=== PATIENT | female | born 1950 | race Caucasian/White ===

== ENCOUNTER → 2020-06-02 09:42 | Outpatient (BNVA) | payer MEDICARE, MEDICAID, SELFPAY | PROVIDERS: PCP Family Medicine; Referring Provider Family Medicine; Visit Provider Psychiatry & Neurology Neurology | DX: R26.89 Other abnormalities of gait and mobility (principal); G40.109 Localization-related (focal) (partial) symptomatic epilepsy and epileptic syndromes with simple partial seizures, not intractable, without status epilepticus; R41.3 Other amnesia | CPT/HCPCS: 99205 ==

== ENCOUNTER 2020-06-05 04:39 | Outpatient (CLI) | payer MEDICARE, MEDICAID, SELFPAY ==
--- NOTE | 2020-06-11 16:59 | PDOC.EEG_ITS ---
Neurology EEG EEG: [facility] Department of Neurology LONG-TERM AMBULATORY EEG REPORT Date of Recordin06/05/20 at 13:32:58 to 06/06/20 at 09:51:39 Interpreting Physician: Dr. Jeanne Tam PCP/Referring Provider: Dr. Tamayo Reason for study: Ms. Veloz is a 70 year-old woman with a recent diagnosis of left temporal epilepsy and recent feelings of unwellness concerning for subclinical seizure activity. Current Medications: Home Medications Medication Instructions Recorded Confirmed Type hydroxyzine HCl 25 mg tablet 25 mg PO TID PRN 05/05/20 06/02/20 History lamotrigine 25 mg tablet 100 mg PO DAILY tab 05/05/20 06/02/20 History multivitamin,gy-sdln-[id number] 1 tab PO DAILY 05/05/20 06/02/20 History potassium chloride 20 mEq 20 meq PO DAILY 05/05/20 06/02/20 History tablet,extended release(part/cryst) folic acid 1 mg tablet 1 mg PO DAILY 06/02/20 06/02/20 History lacosamide 150 mg tablet 150 mg PO DIRECTED tab 06/02/20 06/02/20 History thiamine HCl (vitamin B1) 100 mg 100 mg PO DAILY 06/02/20 06/02/20 History tablet zolpidem 5 mg tablet 5 mg PO QHS PRN 06/02/20 06/02/20 History METHODS: An 18-channel digitized electroencephalogram was recorded in the ambulatory setting with video. The 10/20 international system of electrode placement was used and bipolar and referential electrode montages were recorded. In addition to EEG the patient was monitored for EKG and by video. Activation procedures of photic stimulation and hyperventilation were performed if applicable. The duration of the recording was ~20 hours. DESCRIPTION OF EEG: Waking background activity: During maximal wakefulness a 10-Hz posterior background rhythm was present which was well-modulated, symmetrical, reactive to eye opening, and of moderate voltage. Faster frequencies were present in the bilateral anterior head regions. There was a normal anterior-posterior voltage gradient. Drowsy and sleeping background activity: During drowsiness, there was attenuation of the posterior dominant background rhythm and vertex waves. Normal stage II and III sleep was present with symmetrical sleep spindles, K- complexes, and vertex waves with slowing of the background rhythm to delta/theta frequencies. REM sleep manifested by rapid lateral eye movements and faster background rhythms was recorded. Arousal was unremarkable. Of note, she had overall very little sleep during the recorded time period. What sleep was recorded, occurred in short 1 hour naps for the most part with a single sleep episode of ~3 hours late in the evening. During sleep, she had frequent nocturnal arousals. Interictal abnormalities: none. Ictal findings: No events captured. Activating Procedures: Photic stimulation was performed which produced no posterior driving response. Hyperventilation was performed with moderate effort and produced no physiological slowing of the background. EKG: EKG revealed normal sinus rhythm. INTERPRETATION: This long-term EEG is normal during the awake and sleep states as well as during the activation procedures. No events were captured. She demonstrated a scattered sleep pattern with frequent nocturnal arousals. PRIOR EEG: -vEEG (10/2019 at [facility]): multiple seizures captured with left temporal onset. CLINICAL CORRELATION: No focal regions of cerebral dysfunction or epileptiform activity was present. No events/seizures were captured. The sleep disturbance seen is concerning for an underlying sleep disorder such as sleep apnea. Clinical correlation is advised. Jeanne Tam MD
== END 2020-06-05 04:59 ==
PROVIDERS: PCP Family Medicine; Visit Provider Psychiatry & Neurology Neurology
DX: G40.909 Epilepsy, unspecified, not intractable, without status epilepticus (principal)
CPT/HCPCS: 95714; 95720

== ENCOUNTER → 2020-06-18 13:34 | Outpatient (BNVA) | payer MEDICARE, MEDICAID, SELFPAY | PROVIDERS: PCP Family Medicine; Referring Provider Family Medicine; Visit Provider Psychiatry & Neurology Neurology | DX: R41.3 Other amnesia (principal); G47.00 Insomnia, unspecified; R26.9 Unspecified abnormalities of gait and mobility; G40.109 Localization-related (focal) (partial) symptomatic epilepsy and epileptic syndromes with simple partial seizures, not intractable, without status epilepticus | CPT/HCPCS: 99214 ==

== ENCOUNTER → 2020-07-23 09:13 | Outpatient (BNVA) | payer MEDICARE, MEDICAID, SELFPAY | PROVIDERS: PCP Family Medicine; Referring Provider Family Medicine; Visit Provider Psychiatry & Neurology Neurology | DX: R26.89 Other abnormalities of gait and mobility (principal); G40.109 Localization-related (focal) (partial) symptomatic epilepsy and epileptic syndromes with simple partial seizures, not intractable, without status epilepticus; R41.3 Other amnesia; G47.00 Insomnia, unspecified | CPT/HCPCS: 99214 ==

== ENCOUNTER → 2020-09-23 08:24 | Outpatient (BNVA) | payer MEDICARE, MEDICAID, SELFPAY | PROVIDERS: PCP Family Medicine; Referring Provider Family Medicine; Visit Provider Psychiatry & Neurology Neurology | DX: G62.9 Polyneuropathy, unspecified (principal); G40.109 Localization-related (focal) (partial) symptomatic epilepsy and epileptic syndromes with simple partial seizures, not intractable, without status epilepticus; R41.3 Other amnesia; R26.9 Unspecified abnormalities of gait and mobility; G47.00 Insomnia, unspecified; R20.2 Paresthesia of skin | CPT/HCPCS: 99213 ==

== ENCOUNTER → 2020-11-26 07:35 | Outpatient (BNVA) | payer MEDICARE, MEDICAID, SELFPAY | PROVIDERS: PCP Family Medicine; Referring Provider Family Medicine; Visit Provider Psychiatry & Neurology Neurology | DX: G40.109 Localization-related (focal) (partial) symptomatic epilepsy and epileptic syndromes with simple partial seizures, not intractable, without status epilepticus (principal); R41.3 Other amnesia; G47.00 Insomnia, unspecified; R20.2 Paresthesia of skin | CPT/HCPCS: 99443 ==

== ENCOUNTER → 2021-01-21 08:39 | Outpatient (BNVA) | payer MEDICARE, MEDICAID, SELFPAY | PROVIDERS: PCP Family Medicine; Referring Provider Family Medicine; Visit Provider Psychiatry & Neurology Neurology | DX: G40.109 Localization-related (focal) (partial) symptomatic epilepsy and epileptic syndromes with simple partial seizures, not intractable, without status epilepticus (principal); R41.3 Other amnesia; G47.00 Insomnia, unspecified; R20.2 Paresthesia of skin; R26.9 Unspecified abnormalities of gait and mobility | CPT/HCPCS: 99213 ==

== ENCOUNTER → 2021-04-15 08:50 | Outpatient (BNVA) | payer MEDICARE, MEDICAID, SELFPAY | PROVIDERS: PCP Family Medicine; Referring Provider Family Medicine; Visit Provider Psychiatry & Neurology Neurology | DX: G40.109 Localization-related (focal) (partial) symptomatic epilepsy and epileptic syndromes with simple partial seizures, not intractable, without status epilepticus (principal); R41.3 Other amnesia; G47.00 Insomnia, unspecified; R26.9 Unspecified abnormalities of gait and mobility; R20.2 Paresthesia of skin | CPT/HCPCS: 99213 ==

== ENCOUNTER → 2021-07-15 08:33 | Outpatient (BNVA) | payer MEDICARE, MEDICAID, SELFPAY | PROVIDERS: PCP Family Medicine; Referring Provider Family Medicine; Visit Provider Psychiatry & Neurology Neurology | DX: G40.109 Localization-related (focal) (partial) symptomatic epilepsy and epileptic syndromes with simple partial seizures, not intractable, without status epilepticus (principal); R41.3 Other amnesia; G47.00 Insomnia, unspecified; R26.9 Unspecified abnormalities of gait and mobility; R20.2 Paresthesia of skin | CPT/HCPCS: 99214 ==

== ENCOUNTER → 2021-12-08 09:27 | Outpatient (BNVA) | payer MEDICARE, MEDICAID, SELFPAY | PROVIDERS: PCP Family Medicine; Referring Provider Family Medicine; Visit Provider Psychiatry & Neurology Neurology | DX: G40.109 Localization-related (focal) (partial) symptomatic epilepsy and epileptic syndromes with simple partial seizures, not intractable, without status epilepticus (principal); R41.3 Other amnesia; G47.00 Insomnia, unspecified; R26.9 Unspecified abnormalities of gait and mobility; R20.2 Paresthesia of skin | CPT/HCPCS: 99213 ==

== ENCOUNTER → 2022-02-22 13:36 | Outpatient (BNVA) | payer MEDICARE, MEDICAID, SELFPAY | PROVIDERS: PCP Family Medicine; Referring Provider Family Medicine; Visit Provider Psychiatry & Neurology Neurology | DX: G40.109 Localization-related (focal) (partial) symptomatic epilepsy and epileptic syndromes with simple partial seizures, not intractable, without status epilepticus (principal); F10.230 Alcohol dependence with withdrawal, uncomplicated; R41.3 Other amnesia; G47.00 Insomnia, unspecified; R26.9 Unspecified abnormalities of gait and mobility; R20.2 Paresthesia of skin | CPT/HCPCS: 99214 ==

== ENCOUNTER → 2022-05-11 08:42 | Outpatient (BNVA) | payer MEDICARE, MEDICAID, SELFPAY | PROVIDERS: PCP Family Medicine; Referring Provider Family Medicine; Visit Provider Psychiatry & Neurology Neurology | DX: G40.109 Localization-related (focal) (partial) symptomatic epilepsy and epileptic syndromes with simple partial seizures, not intractable, without status epilepticus (principal); R41.3 Other amnesia; G47.00 Insomnia, unspecified; R26.9 Unspecified abnormalities of gait and mobility; R20.2 Paresthesia of skin | CPT/HCPCS: 99214 ==

== ENCOUNTER → 2022-11-09 08:00 | Outpatient (BNVA) | payer MEDICARE, MEDICAID, SELFPAY | PROVIDERS: PCP Family Medicine; Referring Provider Family Medicine; Visit Provider Psychiatry & Neurology Neurology | DX: G40.109 Localization-related (focal) (partial) symptomatic epilepsy and epileptic syndromes with simple partial seizures, not intractable, without status epilepticus (principal); R20.2 Paresthesia of skin; R41.3 Other amnesia; G47.00 Insomnia, unspecified; R26.9 Unspecified abnormalities of gait and mobility; G43.009 Migraine without aura, not intractable, without status migrainosus | CPT/HCPCS: 99214 ==

== ENCOUNTER → 2023-05-11 08:12 | Outpatient (BNVA) | payer MEDICARE, MEDICAID, SELFPAY | PROVIDERS: PCP Family Medicine; Referring Provider Family Medicine; Visit Provider Psychiatry & Neurology Neurology | DX: R41.3 Other amnesia (principal); F39 Unspecified mood [affective] disorder; G47.00 Insomnia, unspecified; R26.89 Other abnormalities of gait and mobility; G40.109 Localization-related (focal) (partial) symptomatic epilepsy and epileptic syndromes with simple partial seizures, not intractable, without status epilepticus; R20.2 Paresthesia of skin | CPT/HCPCS: 99214 ==

== ENCOUNTER 2023-06-03 12:21 | Day surgery (SDC) | payer MEDICARE, MEDICAID, SELFPAY ==
[2023-06-03 12:47] VITALS: BP 131/60; PULSE 61; RESP 16; TEMP 36.3; O2SAT 97
[2023-06-03] MEDS: Tropicam./Phenyleph. (1/2.5%) 5 ML BTL OS ×3 (12:55→13:09)
--- NOTE | 2023-06-03 13:13 | W.ANESPRE ---
General Info Date of Service Date Performed: 06/03/23 Height: 5 ft 6 in Weight: 75.1 kg Body Mass Index (BMI): 26.7 Surgical Procedure: Operation Date: 06/03/23 14:25 Proposed Procedure Side Surgeon p Cataract Extraction with IOL Implant Left Maxim Herr MD Meds Allergies and Home Medications Allergies Allergy/AdvReac Type Severity Reaction Status Date / Time codeine Allergy Verified 06/03/23 12:44 lithium AdvReac dizzy Verified 06/03/23 12:44 Home Medication Medication Instructions Recorded hydroxyzine HCl 25 mg tablet 25 mg PO TID PRN 05/05/20 multivitamin,sl-mzat-eljjwuow 1 tab PO DAILY 05/05/20 (Complete Multivitamin tablet) cyanocobalamin (vitamin B-12) 1,000 mcg PO DAILY 07/15/21 1,000 mcg capsule thiamine HCl (vitamin B1) 100 mg 100 mg PO DAILY #90 tabs 03/23/22 tablet ondansetron 4 mg disintegrating 4 mg PO Q8H PRN nausea and 05/11/22 tablet vomiting #30 tabs lamotrigine 200 mg tablet 200 mg PO BID #180 tabs 11/09/22 folic acid 1 mg tablet 1 mg PO DAILY 05/11/23 levetiracetam 1,000 mg tablet 1,000 mg PO BID #180 tabs 05/11/23 ciclopirox 0.77 % topical gel 1 applic topical BID 06/01/23 sumatriptan succinate 100 mg tablet 100 mg PO DIRECTED 06/01/23 Current Visit Medications: Current Medications Generic Name Dose Route Start Last Admin Trade Name Serafinq PRN Reason Stop Dose Admin Acetaminophen 1,000 mg 06/03/23 06:00 Acetaminophen 500 Mg Tab PO 07/03/23 05:59 Q4H PRN PRN Balanced Salt Solution 500 ml 06/03/23 06:00 Balanced Salt Soln.-Plus 500 Ml Bag OP 07/03/23 05:59 DIRECTED ADOLPH Miscellaneous Medication 0 ml 06/03/23 06:00 Prednisolone 1%, Moxifloxacin 0.5%, Nepafenac 0.1% 5ml Btl OS 07/03/23 05:59 DIRECTED ADOLPH Miscellaneous Medication 0 ml 06/03/23 06:00 06/03/23 13:09 Tropicam./Phenyleph. 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 Tinea corporis Urge incontinence Urinary incontinence Surgical History Surgical History H/O section History of tonsillectomy Hx of artificial knee joint, has currently S/P total knee arthroplasty Tobacco Smoking/Tobacco Use Status: Former Tobacco Use Alcohol Alcohol Intake: former Substance Use Substance use: Daily Substance use type: marijuana Details: last marijuana use 06/02/23, smokes Vital Signs and Lab Results Vital Signs Most Recent Vital Signs in EMR: Most Recent Vital Signs Temp Pulse Resp BP Pulse Ox 36.3 C L 61 16 131/60 97 06/03/23 12:47 06/03/23 12:47 06/03/23 12:47 06/03/23 12:47 06/03/23 12:47 Lab Results Blood Type / Crossmatch: No Data to Display Complete Blood Count: No Data to Display Complete Metabolic Panel: No Data to Display Liver Function Panel: No Data to Display Coagulation Panel: No Data to Display Cardiac Panel: No Data to Display Arterial Blood Gas: No Data to Display Venous Blood Gas: No Data to Display Pancreas Panel: No Data to Display Thyroid Panel: No Data to Display Infectious Disease: No Data to Display Blood Cultures: No Data to Display Toxicology Panel: No Data to Display Anesthesia Assessment and Plan Anesthesia History Personal History: No History of Anesthesia Complications Family History: No Family History of Anesthesia Complications Exercise Tolerance Exercise Tolerance: Metabolic Equivalents>4 Pertinent Negatives Pertinent Negatives: No Symptoms of GERD Cardiac & Pulmonary Exam Cardiac Exam: Normal S1/S2 Heart Sounds Pulmonary Exam: Clear Bilateral Breath Sounds Implantable Cardiac Device Does patient have a Pacemaker or an ICD?: No Airway Exam Known Difficult Airway: No Mallampati Class: 1 Mouth Opening: Normal (> 3cm) Thyromental Distance: Greater than 3 cm Neck Range of Motion: Full ROM Neck Circumference: Normal Teeth Condition: Normal Dentition ASA Classification ASA Score: ASA 2 Emergency Case?: No NPO Status NPO Status: NPO Clears >2 hours, Solids >8 hours Anesthesia Plan Resuscitation Status: Full Code Anesthesia Technique: MAC Anesthesia Airway Planned: Natural Airway Monitors Used: Standard Monitors
[2023-06-03 13:14] VITALS: BMI 26.7
[2023-06-03] MEDS: Balanced Salt Soln.-PLUS 500 ML BAG OP (14:10)
[2023-06-03] MEDS: Duovisc Viscoelastic System EACH 1 EACH (14:11)
[2023-06-03] MEDS: Phenylephrine/Lidocaine (15/10) MG/ML 1 ML VIAL (14:12)
[2023-06-03] MEDS: Lidocaine 1% Pres-Free 5 ML VIAL (14:12)
[2023-06-03] MEDS: Povidone-Iodine Ophth 30 ML BTL (14:14)
--- NOTE | 2023-06-03 14:27 | W.PM.DSUDISC ---
Date of service: 06/03/23 Time of Service: 14:27 Discharge Plan Disposition Patient Disposition: Home Discharge Details Attending Provider: Maxim Herr Primary Care Provider: ASHER BAEZ Home Meds and New Rx's Prescriptions: No Action ondansetron 4 mg tablet,disintegrating 4 mg PO Q8H PRN (Reason: nausea and vomiting) Qty: 30 0RF cyanocobalamin (vitamin B-12) 1,000 mcg capsule 1,000 mcg PO DAILY lamotrigine 200 mg tablet 200 mg PO BID Qty: 180 3RF folic acid 1 mg tablet 1 mg PO DAILY levetiracetam 1,000 mg tablet 1,000 mg PO BID Qty: 180 3RF hydroxyzine HCl 25 mg tablet 25 mg PO TID PRN Complete Multivitamin Tablet 1 tab PO DAILY thiamine HCl (vitamin B1) 100 mg tablet 100 mg PO DAILY Qty: 90 3RF sumatriptan succinate 100 mg tablet 100 mg PO DIRECTED Patient Comments: TAKE ONE TABLET BY MOUTH AT ONSET OF HEADACHE; IF NO RELIEF, MAY REPEAT ONE TABLET AFTER AT LEAST 2 HOURS; MAX 2 TABLETS IN 24 HOURS ciclopirox 0.77 % gel 1 applic TOPICAL BID Patient Comments: APPLY TOPICALLY TWO TIMES A DAY Discharge Instructions Stand Alone Forms: Post-op Topical CataractSebastian (DSU) Discharge Orders Discharge Orders: Discharge Order (Routine); Ordered 06/03/23 Ordered By: Maxim Herr DS: Diagnosis Discharge Diagnosis (1) Posterior subcapsular age-related cataract of left eye: Status: Resolved (2) Cortical age-related cataract, left eye: Status: Resolved (3) Nuclear age-related cataract, left eye: Status: Resolved
[2023-06-03 14:28] VITALS: BP 129/72; PULSE 56; RESP 16; TEMP 36.4; O2SAT 99
--- NOTE | 2023-06-03 14:28 | ROE_ITS ---
Date of service: 06/03/23 Time of Service: 14:28 Operative Note Operative Note DATE OF PROCEDURE: 06/03/23 PRE-OP DIAGNOSIS: Nuclear/cortical/posterior subcapsular cataract, left eye POST-OP DIAGNOSIS: same PROCEDURE: Cataract extraction using phacoemulsification with intraocular lens implant, left eye SURGEON: Maxim Herr ANESTHESIA TYPE: Local By Surgeon and MAC Refer to Anesthesia Record PATHOLOGY: none sent COMPLICATIONS: None Patient was transported to: same day Patient's condition: stable Implants: Derrick Clareon [id number] Indications: Progressive decreased vision due to cataract, left eye Procedure Description: CATARACT SURGERY OPERATIVE REPORT PREOPERATIVE DIAGNOSIS: Nuclear/cortical/posterior subcapsular cataract, left eye POSTOPERATIVE DIAGNOSIS: Same OPERATION: Cataract extraction using phacoemulsification with posterior chamber intraocular lens implant, left eye. IOL: IOL Acoustical Tile Patternmaker/Model: Derrick Clareon [id number] IOL Power: + 15.0 diopters IOL Serial Number: [id number] Optic Diameter: 6.0mm Haptic/Overall Diameter: 13.0mm PHACO INFO: Derrick [place] [employer]urion Vision System with OZil and Active Fluidics Cumulative Dispersed Energy (CDE): 12.92 seconds SURGEON: Maxim Herr MD, BEATRIZ ANESTHESIA: Monitored Anesthesia Care (MAC), with local sub-tenon's anesthetic infiltration COMPLICATIONS: None SPECIMENS: None INDICATIONS FOR PROCEDURE: The patient is a 73-year-old lady with history of myopia who has developed symptomatic nuclear/cortical/posterior subcapsular cataract. She is significantly symptomatic that she desires cataract surgery and attempt to improve and maximize her vision. See office notes for detailed information. PROCEDURE: The correct surgical eye was identified and marked as the left eye and the pupil was dilated in the preoperative area using mydriatics and cycloplegics. The dilated pupil size was 8.0 mm. . The patient elected to proceed without oral sedation. The patient was brought to the operating room where cardiopulmonary monitoring was instituted and surgical time-out was performed, confirming the correct operative eye and IOL power. Topical anesthesia was administered and ophthalmic povidone-iodine 5% was instilled into the conjunctival fornices. The denise-ocular area was prepped with Betadine 10% solution and draped in the usual sterile fashion for intraocular surgery, including an aperture drape. A Tegaderm transparent film dressing was cut in half and used to cover the lashes and lid margins. Care was taken to sequester the lashes and lid margins under the Tegaderm dressing. A lid speculum was placed between the lids of the operative eye and the Derrick LuxOR Revalia operating microscope was maneuvered into position. Albaro scissors were then used to make a conjunctival buttonhole approximately 6mm posterior to the limbus in the inferonasal quadrant. Blunt dissection was carried out to expose bare sclera, and a blunt-tipped sub-tenon?s anesthesia cannula was introduced and passed posteriorly along the globe where non- preserved plain lidocaine was injected into posterior sub-Tenon?s space. A sideport knife was used to make a paracentesis port. Intraocular phenylephrine/lidocaine was injected into the anterior chamber. The anterior chamber was then filled with viscoelastic. A keratome knife was used construct a two-plane clear corneal tunnel extending 2.0mm into clear cornea. A flap was raised on the anterior capsule and capsulorhexis forceps were used to complete a continuous curvilinear capsulorhexis of 5.8 mm. Balanced salt solution was then used to perform cortical cleaving hydrodissection and nuclear hydrodelineation until the lens could be freely rotated within the capsular bag. The lens nucleus was then disassembled and removed within the capsular bag and iris plane using phacoemulsification. Residual cortical material was removed using the irrigation/aspiration handpiece. The posterior capsule was carefully polished to remove as much residual lens epithelial cells as safely possible. The capsular bag was then inflated and the anterior chamber deepened with viscoelastic. The lens implant described above was inserted into the capsular bag using the Derrick Autonome Injector. A Kuglen hook was used to dial the IOL into position. Residual viscoelastic was then removed first from posterior to the IOL, then from the anterior chamber using the I/A handpiece. The lens implant was noted to center nicely within the capsular bag. The incisions were stromally hydrated, and the anterior chamber was reformed using BSS. Then 0.5cc of moxifloxacin 1.0mg/ml were injected into the capsular bag and anterior chamber. The incisions were checked with a Weck spear and found to be secure. Several drops of ophthalmic povidone-iodine 5% were then applied to the eye followed by two d rops of Imprimis combination prednisolone/moxifloxacin/nepafenac solution. The drapes were removed and a clear plastic protective eye shield was placed over the eye. The patient was then returned to Same Day Surgery in stable condition.
--- NOTE | 2023-06-03 14:32 | W.ANESPOSTOP ---
Postoperative Evaluation Date, Time and Location Date Performed: 06/03/23 Time Performed: 14:32 Patient Location: Day Surgery Unit Vital Signs Most Recent Imported Vital Signs: Most Recent Vital Signs Temp Pulse Resp BP Pulse Ox 36.3 C L 61 16 131/60 97 06/03/23 12:47 06/03/23 12:47 06/03/23 12:47 06/03/23 12:47 06/03/23 12:47 Pain Score Most Recent Pain Score: Most Recent Pain Score Pain Level 0 06/03/23 12:47 Assessment Mental Status: Awake (Alert & Oriented to Patient Baseline) Airway and Respiratory Function: Patent airway with normal (patient baseline) respiratory exam Cardiovascular Function: Hemodynamically Stable Hydration Status: Adequately Hydrated Nausea & Vomiting: No Nausea or Vomiting Pain: Pt. Denies Any Pain Peripheral Nerve Block: Patient did not receive a nerve block
== END 2023-06-03 14:45 | disposition home or self-care (01) ==
LOC: SUR 12:21
PROVIDERS: PCP Family Medicine; Visit Provider Ophthalmology
PROC: (CPT 66984; principal; 2023-06-03 14:15)
DX: H25.042 Posterior subcapsular polar age-related cataract, left eye (principal); H25.012 Cortical age-related cataract, left eye; H25.12 Age-related nuclear cataract, left eye
CPT/HCPCS: 66984; V2632

== ENCOUNTER 2023-06-17 09:21 | Day surgery (SDC) | payer MEDICARE, MEDICAID, SELFPAY ==
--- NOTE | 2023-06-17 06:24 | W.ANESPRE ---
General Info Date of Service Date Performed: 06/17/23 Height: 5 ft 6 in Weight: 75.1 kg Body Mass Index (BMI): 26.7 Surgical Procedure: Operation Date: 06/17/23 11:25 Proposed Procedure Side Surgeon p Cataract Extraction with IOL Implant Right Maxim Herr MD Meds Allergies and Home Medications Allergies Allergy/AdvReac Type Severity Reaction Status Date / Time codeine Allergy Verified 06/17/23 09:49 lithium AdvReac dizzy Verified 06/17/23 09:49 Home Medication Medication Instructions Recorded hydroxyzine HCl 25 mg tablet 25 mg PO TID PRN 05/05/20 multivitamin,dn-fkbm-zewwrfkk 1 tab PO DAILY 05/05/20 (Complete Multivitamin tablet) cyanocobalamin (vitamin B-12) 1,000 mcg PO DAILY 07/15/21 1,000 mcg capsule thiamine HCl (vitamin B1) 100 mg 100 mg PO DAILY #90 tabs 03/23/22 tablet ondansetron 4 mg disintegrating 4 mg PO Q8H PRN nausea and 05/11/22 tablet vomiting #30 tabs lamotrigine 200 mg tablet 200 mg PO BID #180 tabs 11/09/22 folic acid 1 mg tablet 1 mg PO DAILY 05/11/23 levetiracetam 1,000 mg tablet 1,000 mg PO BID #180 tabs 05/11/23 ciclopirox 0.77 % topical gel 1 applic topical BID 06/01/23 sumatriptan succinate 100 mg tablet 100 mg PO DIRECTED 06/01/23 Current Visit Medications: Current Medications Generic Name Dose Route Start Last Admin Trade Name Serafinq PRN Reason Stop Dose Admin Acetaminophen 1,000 mg 06/17/23 06:00 Acetaminophen 500 Mg Tab PO 07/17/23 05:59 Q4H PRN PRN Balanced Salt Solution 500 ml 06/17/23 06:00 Balanced Salt Soln.-Plus 500 Ml Bag OP 07/17/23 05:59 DIRECTED ADOLPH Miscellaneous Medication 0 ml 06/17/23 06:00 Prednisolone 1%, Moxifloxacin 0.5%, Nepafenac 0.1% 5ml Btl OD 07/17/23 05:59 DIRECTED ADOLPH Miscellaneous Medication 0 ml 06/17/23 06:00 Tropicam./Phenyleph. 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 Tinea corporis Urge incontinence Urinary incontinence Surgical History Surgical History H/O section History of tonsillectomy Hx of artificial knee joint, has currently S/P total knee arthroplasty Tobacco Smoking/Tobacco Use Status: Former Tobacco Use Alcohol Alcohol Intake: former Substance Use Substance use: Daily Substance use type: marijuana Vital Signs and Lab Results Vital Signs Most Recent Vital Signs in EMR: Temp Pulse Resp BP Pulse Ox 36.3 C L 58 L 16 129/62 99 06/17/23 09:45 06/17/23 09:45 06/17/23 09:45 06/17/23 09:45 06/17/23 09:45 Lab Results Blood Type / Crossmatch: No Data to Display Complete Blood Count: No Data to Display Complete Metabolic Panel: No Data to Display Liver Function Panel: No Data to Display Coagulation Panel: No Data to Display Cardiac Panel: No Data to Display Arterial Blood Gas: No Data to Display Venous Blood Gas: No Data to Display Pancreas Panel: No Data to Display Thyroid Panel: No Data to Display Infectious Disease: No Data to Display Blood Cultures: No Data to Display Toxicology Panel: No Data to Display Anesthesia Assessment and Plan Anesthesia History Personal History: No History of Anesthesia Complications Family History: No Family History of Anesthesia Complications Exercise Tolerance Exercise Tolerance: Metabolic Equivalents>4 Cardiac & Pulmonary Exam Cardiac Exam: Normal S1/S2 Heart Sounds Pulmonary Exam: Clear Bilateral Breath Sounds Implantable Cardiac Device Does patient have a Pacemaker or an ICD?: No Airway Exam Known Difficult Airway: No Mallampati Class: 1 Mouth Opening: Normal (> 3cm) Thyromental Distance: Greater than 3 cm Neck Range of Motion: Full ROM Neck Circumference: Normal Teeth Condition: Normal Dentition ASA Classification ASA Score: ASA 2 Emergency Case?: No NPO Status NPO Status: NPO Clears >2 hours, Solids >8 hours Anesthesia Plan Resuscitation Status: Full Code Anesthesia Technique: MAC Anesthesia Airway Planned: Natural Airway Monitors Used: Standard Monitors Preoperative Comments:: 73 yo female for repeat cataract. No MKO for previous, no issues. denies health history change.
--- NOTE | 2023-06-17 06:52 | W.PREOPHP ---
Assessment and Plan Assessment and plan (1) Nuclear age-related cataract, right eye: Status: Acute Assessment and plan: Assessment: Visually significant cataract of the right eye. Plan: Cataract extraction with lens implantation of the right eye. (2) Posterior subcapsular age-related cataract, right eye: Status: Acute Assessment and plan: Assessment: Visually significant cataract of the right eye. Plan: Cataract extraction with lens implantation of the right eye. (3) Cortical age-related cataract, right eye: Status: Acute Assessment and plan: Assessment: Visually significant cataract of the right eye. Plan: Cataract extraction with lens implantation of the right eye. History of Present Illness History of Present Illness Chief Complaint: Decreased vision, right eye Narrative: The patient is a 73-year-old lady with history of diminished visual acuity in both eyes at both distance and near. She notes difficulty reading small print and also severe glare when driving at night. On examination she was noted to have bilateral nuclear/cortical/posterior subcapsular cataract. She underwent cataract surgery in the left eye on 06/03/2023 and is doing well postoperatively. She now presents for cataract surgery in the left. 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 Tinea corporis Urge incontinence Urinary incontinence Surgical History H/O section History of tonsillectomy Hx of artificial knee joint, has currently S/P total knee arthroplasty Family History Father Heart disease Alcohol abuse Maternal Grandmother Heart disease Parkinson disease Social History Smoking/Tobacco Use Status: Former Tobacco Use Quit Date: 10/03/13 Smoking risk assessment performed?: Yes Alcohol Intake: former Drug use: Daily Substance use type: marijuana Household members: none Housing: house Number of Children: 1 current occupation: Retired Pets and animals: Yes Pets and animals: cat(s) and dog(s) What type of physical activity do you participate in: walking Seatbelt use: always Do you feel safe at home: Yes Do you feel safe in your relationship?: Yes Meds Allergies and Home Medications Allergies Allergy/AdvReac Type Severity Reaction Status Date / Time codeine Allergy Verified 06/17/23 09:49 lithium AdvReac dizzy Verified 06/17/23 09:49 Home Medications Medication Instructions Recorded Confirmed Type hydroxyzine HCl 25 mg tablet 25 mg PO TID PRN 05/05/20 06/17/23 History multivitamin,zd-zxng-mukezbaw 1 tab PO DAILY 05/05/20 06/15/23 History (Complete Multivitamin tablet) cyanocobalamin (vitamin B-12) 1,000 mcg PO DAILY 07/15/21 06/15/23 History 1,000 mcg capsule thiamine HCl (vitamin B1) 100 mg 100 mg PO DAILY #90 tabs 03/23/22 06/17/23 Rx tablet ondansetron 4 mg disintegrating 4 mg PO Q8H PRN nausea and 05/11/22 06/15/23 Rx tablet vomiting #30 tabs lamotrigine 200 mg tablet 200 mg PO BID #180 tabs 11/09/22 06/17/23 Rx folic acid 1 mg tablet 1 mg PO DAILY 05/11/23 06/17/23 History levetiracetam 1,000 mg tablet 1,000 mg PO BID #180 tabs 05/11/23 06/17/23 Rx ciclopirox 0.77 % topical gel 1 applic topical BID 06/01/23 06/15/23 History sumatriptan succinate 100 mg tablet 100 mg PO DIRECTED 06/01/23 06/17/23 History Exam Eyes Other: Most recent ocular examination reveals corrected visual acuity of 20/40 OD 20/20 OS. Intraocular pressure is 22 OD, 21 OS. Extract motility is normal. Slit-lamp examination reveals mild cortical with moderate nuclear and trace posterior subcapsular cataract in the right eye. In the left eye there is a well-positioned PCIOL with clear posterior capsule. Funduscopic examination shows disc cupping of 0.35 OU with normal vessels, macula, peripheral retina and vitreous. Resp Auscultation: clear to auscultation bilaterally Cardio Rate: regular rate Rhythm: regular rhythm
[2023-06-17 09:45] VITALS: BP 129/62; PULSE 58; RESP 16; TEMP 36.3; O2SAT 99; BMI 26.7
[2023-06-17] MEDS: Tropicam./Phenyleph. (1/2.5%) 5 ML BTL OD ×3 (09:56→10:15)
[2023-06-17] MEDS: Tetracaine 0.5% 4 ML BTL OD (10:46)
[2023-06-17] MEDS: Povidone-Iodine Ophth 30 ML BTL (10:47)
[2023-06-17] MEDS: Balanced Salt Soln.-PLUS 500 ML BAG OP (10:50)
[2023-06-17] MEDS: Duovisc Viscoelastic System EACH 1 EACH (10:50)
[2023-06-17] MEDS: Lidocaine 1% Pres-Free 5 ML VIAL (10:51)
[2023-06-17] MEDS: Phenylephrine/Lidocaine (15/10) MG/ML 1 ML VIAL (10:52)
[2023-06-17 11:09] VITALS: BP 132/78; PULSE 58; RESP 18; TEMP 36.8; O2SAT 100
--- NOTE | 2023-06-17 11:10 | W.PM.DSUDISC ---
Date of service: 06/17/23 Time of Service: 11:11 Discharge Plan Disposition Patient Disposition: Home Discharge Details Attending Provider: Maxim Herr Primary Care Provider: ASHER BAEZ Home Meds and New Rx's Prescriptions: No Action ondansetron 4 mg tablet,disintegrating 4 mg PO Q8H PRN (Reason: nausea and vomiting) Qty: 30 0RF cyanocobalamin (vitamin B-12) 1,000 mcg capsule 1,000 mcg PO DAILY lamotrigine 200 mg tablet 200 mg PO BID Qty: 180 3RF folic acid 1 mg tablet 1 mg PO DAILY levetiracetam 1,000 mg tablet 1,000 mg PO BID Qty: 180 3RF hydroxyzine HCl 25 mg tablet 25 mg PO TID PRN Complete Multivitamin Tablet 1 tab PO DAILY thiamine HCl (vitamin B1) 100 mg tablet 100 mg PO DAILY Qty: 90 3RF sumatriptan succinate 100 mg tablet 100 mg PO DIRECTED Patient Comments: TAKE ONE TABLET BY MOUTH AT ONSET OF HEADACHE; IF NO RELIEF, MAY REPEAT ONE TABLET AFTER AT LEAST 2 HOURS; MAX 2 TABLETS IN 24 HOURS ciclopirox 0.77 % gel 1 applic TOPICAL BID Patient Comments: APPLY TOPICALLY TWO TIMES A DAY Discharge Instructions Stand Alone Forms: Post-op Topical CataractSebastian (DSU) Discharge Orders Discharge Orders: Discharge Order (Routine); Ordered 06/17/23 Ordered By: Maxim Herr DS: Diagnosis Discharge Diagnosis (1) Nuclear age-related cataract, right eye: Status: Resolved (2) Posterior subcapsular age-related cataract, right eye: Status: Resolved (3) Cortical age-related cataract, right eye: Status: Resolved
--- NOTE | 2023-06-17 11:11 | W.PM.OP ---
Date of service: 06/17/23 Time of Service: 11:11 Operative Note Operative Note DATE OF PROCEDURE: 06/17/23 POST-OP DIAGNOSIS: same PROCEDURE: Cataract extraction using phacoemulsification with intraocular lens implant, right eye SURGEON: Maxim Herr ANESTHESIA TYPE: Local By Surgeon and MAC Refer to Anesthesia Record ESTIMATED BLOOD LOSS: 0 PATHOLOGY: none sent COMPLICATIONS: None Patient was transported to: same day Patient's condition: stable Implants: Derrick Clareon [id number] Indications: Progressive decreased vision due to cataract, right eye Procedure Description: CATARACT SURGERY OPERATIVE REPORT PREOPERATIVE DIAGNOSIS: Nuclear/cortical/posterior subcapsular cataract, right eye POSTOPERATIVE DIAGNOSIS: Same OPERATION: Cataract extraction using phacoemulsification with posterior chamber intraocular lens implant, right eye. IOL: IOL Lap Cutter Truer Operator/Model: Derrick Clareon [id number] IOL Power: + 15.0 diopters IOL Serial Number: [id number] Optic Diameter: 6.0mm Haptic/Overall Diameter: 13.0mm PHACO INFO: [employer]urion Vision System with OZil and Active Fluidics Cumulative Dispersed Energy (CDE): 10.96 seconds SURGEON: Maxim Herr MD, BEATRIZ ANESTHESIA: Monitored Anesthesia Care (MAC), with local sub-tenon's anesthetic infiltration COMPLICATIONS: None SPECIMENS: None INDICATIONS FOR PROCEDURE: The patient is a 73-year-old lady with history of diminished visual acuity in both eyes secondary to the development of bilateral nuclear/cortical/posterior subcapsular cataract. She has already undergone cataract surgery in the left eye and is doing well postoperatively. She now presents for cataract surgery in the right eye. See office notes for detailed information. PROCEDURE: The correct surgical eye was identified and marked as the right eye and the pupil was dilated in the preoperative area using mydriatics and cycloplegics. The dilated pupil size was 7.0 mm. The patient elected to proceed without oral sedation. The patient was brought to the operating room where cardiopulmonary monitoring was instituted and surgical time-out was performed, confirming the correct operative eye and IOL power. Topical anesthesia was administered and ophthalmic povidone-iodine 5% was instilled into the conjunctival fornices. The denise-ocular area was prepped with Betadine 10% solution and draped in the usual sterile fashion for intraocular surgery, including an aperture drape. A Tegaderm transparent film dressing was cut in half and used to cover the lashes and lid margins. Care was taken to sequester the lashes and lid margins under the Tegaderm dressing. A lid speculum was placed between the lids of the operative eye and the Radha-Samuel operating microscope was maneuvered into position. Albaro scissors were then used to make a conjunctival buttonhole approximately 6mm posterior to the limbus in the inferonasal quadrant. Blunt dissection was carried out to expose bare sclera, and a blunt-tipped sub-tenon?s anesthesia cannula was introduced and passed posteriorly along the globe where non-preserved plain lidocaine was injected into posterior sub-Tenon?s space. A sideport knife was used to make a paracentesis port. Intraocular phenylephrine/lidocaine was injected into the anterior chamber. The anterior chamber was then filled with viscoelastic. A keratome knife was used to construct a two--plane clear corneal tunnel extending 2.0mm into clear cornea. A flap was raised on the anterior capsule and capsulorhexis forceps were used to complete a continuous curvilinear capsulorhexis of 5.5 mm. Balanced salt solution was then used to perform cortical cleaving hydrodissection and nuclear hydrodelineation until the lens could be freely rotated within the capsular bag. The lens nucleus was then disassembled and removed within the capsular bag and iris plane using phacoemulsification. Residual cortical material was removed using the I/A handpiece. The posterior capsule was carefully polished to remove as much residual lens epithelial cells as safely possible. The capsular bag was then inflated and the anterior chamber deepened with cohesive viscoelastic. The lens implant described above was inserted into the capsular bag using the Derrick Autonome Injector. A Kuglen hook was used to dial the IOL into position. Residual viscoelastic was then removed first from posterior to the IOL, then from the anterior chamber using the I/A handpiece. The lens implant was noted to center nicely within the capsular bag. The incisions were stromally hydrated, and the anterior chamber was reformed using BSS. Then 0.5cc of moxifloxacin 1.0mg/ml were injected into the capsular bag and anterior chamber. The incisions were checked with a Weck spear and found to be secure. Several drops of ophthalmic povidone-iodine 5% were then applied to the eye followed by two drops of Imprimis combination prednisolone/moxifloxacin/nepafenac solution. The drapes were removed and a clear plastic protective eye shield was placed over the eye. The patient was then returned to [facility] in stable condition.
--- NOTE | 2023-06-17 11:36 | W.ANESPOSTOP ---
Postoperative Evaluation Date, Time and Location Date Performed: 06/17/23 Time Performed: 11:09 Patient Location: Day Surgery Unit Vital Signs Most Recent Imported Vital Signs: Most Recent Vital Signs Temp Pulse Resp BP Pulse Ox 36.8 C 58 L 18 132/78 100 06/17/23 11:09 06/17/23 11:09 06/17/23 11:06/17/23 11:06/17/23 11:09 Pain Score Most Recent Pain Score: Most Recent Pain Score Pain Level 0 06/17/23 11:09 Assessment Mental Status: Awake (Alert & Oriented to Patient Baseline) Airway and Respiratory Function: Patent airway with normal (patient baseline) respiratory exam Cardiovascular Function: Hemodynamically Stable Hydration Status: Adequately Hydrated Nausea & Vomiting: No Nausea or Vomiting Pain: Pt. Denies Any Pain Peripheral Nerve Block: Patient did not receive a nerve block
== END 2023-06-17 11:23 | disposition home or self-care (01) ==
LOC: SUR 09:21
PROVIDERS: PCP Family Medicine; Visit Provider Ophthalmology
PROC: (CPT 66984; principal; 2023-06-17 11:15)
DX: H25.11 Age-related nuclear cataract, right eye (principal); H25.041 Posterior subcapsular polar age-related cataract, right eye; H25.011 Cortical age-related cataract, right eye; Z98.42 Cataract extraction status, left eye
CPT/HCPCS: 66984; V2632

== ENCOUNTER → 2023-11-09 09:22 | Outpatient (BNVA) | payer MEDICARE, MEDICAID, SELFPAY | PROVIDERS: PCP Family Medicine; Visit Provider Psychiatry & Neurology Neurology | DX: R41.3 Other amnesia (principal); G47.00 Insomnia, unspecified; R26.9 Unspecified abnormalities of gait and mobility; G40.109 Localization-related (focal) (partial) symptomatic epilepsy and epileptic syndromes with simple partial seizures, not intractable, without status epilepticus; R20.2 Paresthesia of skin | CPT/HCPCS: 99213 ==

== ENCOUNTER → 2024-11-07 09:07 | Outpatient (BNVA) | payer MEDICARE, MEDICAID, SELFPAY | PROVIDERS: PCP Family Medicine; Referring Provider Family Medicine; Visit Provider Psychiatry & Neurology Neurology | DX: R41.3 Other amnesia (principal); G47.00 Insomnia, unspecified; R26.9 Unspecified abnormalities of gait and mobility; G40.109 Localization-related (focal) (partial) symptomatic epilepsy and epileptic syndromes with simple partial seizures, not intractable, without status epilepticus; R20.2 Paresthesia of skin | CPT/HCPCS: 99213 ==